=== PATIENT | female | born 1965 | race Caucasian/White ===

== ENCOUNTER → 2016-10-27 | Outpatient (CLI) | payer BC | END | disposition home or self-care (01) | LOC: C.PAPS 10:38 | PROVIDERS: ATTEND Obstetrics & Gynecology | DX: Z01.419 Encounter for gynecological examination (general) (routine) without abnormal findings (principal) ==

== ENCOUNTER → 2016-12-10 | Outpatient (CLI) | payer BC ==
--- NOTE | 2016-12-13 13:03 | MAMMOGRAPHY REPORT ---
BILATERAL DIGITAL SCREENING MAMMOGRAM TOMOSYNTHESIS WITH CAD: 12/10/2016 TECHNIQUE: Breast tomosynthesis in addition to standard 2D mammography was performed. Current study was also evaluated with a Computer Aided Detection (CAD) system. COMPARISON: Comparison is made to exams dated: 04/04/2015 mammogram, 06/24/2014 ultrasound, 06/24/2014 mammogram, 08/27/2013 ultrasound, 08/27/2013 mammogram, and 08/21/2013 mammogram - [facility]. BREAST COMPOSITION: The tissue of both breasts is heterogeneously dense, which may obscure small ma sses. FINDINGS: No suspicious masses, calcifications, or areas of architectural distortion are noted in e ither breast. There has been no significant interval change compared to prior exams. Bilateral asym metries and bilateral benign-appearing calcifications are not significantly changed. IMPRESSION: ACR BI-RADS CATEGORY 2: BENIGN There is no mammographic evidence of malignancy. A 1 year screening mammogram is recommended. The p atient will receive written notification of the results. Approximately 10% of breast cancers are not detected with mammography. A negative mammographic repor t should not delay biopsy if a clinically suggestive mass is present. Lisset Frank M.D. ah/:12/10/2016 16:42:10 Senior Packaging Engineer: Halle MOISE(R)(M), [facility] letter sent: Normal 1/2 BI-RADS Code: ACR BI-RADS Category 2: Benign
== END | disposition home or self-care (01) ==
LOC: C.MAMM 13:21
PROVIDERS: ATTEND Obstetrics & Gynecology
DX: Z12.31 Encounter for screening mammogram for malignant neoplasm of breast (principal)

== ENCOUNTER → 2017-01-26 | Outpatient (CLI) | payer BC ==
[~2017-01-26] MED LIST: MethylPREDNISolone HOME PACK 16 MG TAB PO SCH
--- NOTE | 2017-01-26 15:24 | DIAGNOSTIC IMAGING REPORT ---
FLUOROSCOPICALLY GUIDED RIGHT HIP STEROID AND ANESTHETIC INJECTION CLINICAL HISTORY: Right hip pain. Degenerative arthritis. COMPARISON STUDY: None FLUOROSCOPY TIME: 26 seconds. A single fluoroscopic spot image was acquired. FINDINGS: A timeout was performed. The risks of the procedure were explained the patient and informed consent was obtained. The patient was prepped and draped in a sterile fashion. The skin was anesthetized 1% lidocaine. Under fluoroscopic guidance, a 22-gauge spinal needle was introduced into the joint capsule the right hip. Intra-articular location was documented with injection of Optiray 300. 2 cc of Celestone, and 5 cc of 0.5% Marcaine were then instilled into the joint capsule. There were no immediate complications. IMPRESSION: Successful intra-articular right hip injection. 5 cc of 0.5% Marcaine, and 2 cc of Celestone were instilled into the joint capsule. Electronically signed by: Nando Vasquez M.D. 01/26/2017 3:22 PM Dictated Date/Time: 01/26/2017 3:20 PM
== END | disposition home or self-care (01) ==
LOC: C.RADBC 13:53
PROVIDERS: ATTEND Orthopaedic Surgery
DX: M16.11 Unilateral primary osteoarthritis, right hip (principal)

== ENCOUNTER 2025-06-11 14:25 | Inpatient (IN) ==
--- NOTE | 2025-06-11 15:15 | Emergency Department Note ---
History of Present Illness General Chief complaint: Abdominal Pain Stated complaint: R ABD PAIN, REF BY DOC Time Seen by Provider: 06/11/25 14:45 History of Present Illness Maximum Pain Intensity: 4 Patient is a 59-year-old female with past medical history significant for endometriosis, diverticulosis, GERD, who presents to the emergency department for evaluation of right lower quadrant abdominal pain. She states she noticed the pain around 1600 yesterday. It is in the mid right/right lower abdomen. It does not radiate. She felt nauseous and uneasy like she might vomit or have diarrhea, but neither occurred. She states the pain was worse last night than it was today, she currently rates it a 4/10. She did have a normal bowel movement yesterday, no change in her pain. She reports bladder pressure and urinary frequency, but no dysuria or hematuria. She did not try taking any medications for her symptoms. Remote history of an ovarian cyst. She denies a history of kidney stones. History of cystoscopy but otherwise no abdominal surgeries. She is postmenopausal. Home Medications Medication Instructions Recorded Confirmed Type fluoxetine 40 mg capsule 40 mg PO QAM 03/29/19 01/28/20 History omeprazole 40 mg capsule,delayed 40 mg PO QAM 03/29/19 01/28/20 History release methylprednisolone 4 mg tablets in 4 mg PO DAILY #21 ea 06/13/25 Rx a dose pack (Medrol (Jaun)) Allergies Allergy/AdvReac Type Severity Reaction Status Date / Time amoxicillin Allergy Unknown Rash Unverified 06/11/25 19:44 moxifloxacin [From Avelox] Allergy Unknown Rash Unverified 06/11/25 19:44 Penicillins Allergy Unknown Rash Unverified 06/11/25 19:47 tuna oil Allergy Unknown CANNED Verified 01/28/20 10:49 TUNA-RASH diphenhydramine AdvReac Unknown aggravates Unverified 06/11/25 19:47 reaction from chicken pox Contrast Media Ready-Box MISC Allergy Unknown RASH,BLISTERS Uncoded 01/28/20 10:49 HANDS AND FEET WITH IVP DYES Past Med/Surg History Problem List (Updated 06/13/25 @ 08:30 by Desean Amos, ) Allergic dermatitis Urinary frequency Hydronephrosis Right lower quadrant abdominal pain (Acute) Microscopic hematuria Pelvic pain in female Laryngopharyngeal reflux Hypertrophy of nasal turbinates Endometriosis Encounter for gynecological examination with abnormal finding Dyspareunia, female Diverticulosis of large intestine without hemorrhage Chronic sinusitis Cervical radiculopathy Acquired deviated nasal septum Medical History (Updated 06/13/25 @ 08:30 by Desean Amos DO) Encounter for pre-operative examination GERD (gastroesophageal reflux disease) Temporomandibular joint disorder CLICKS LEFT SIDE Anxiety Asthma NO INHALERS Interstitial cystitis Urinary urgency Microscopic hematuria Endometriosis Dyspareunia, female Cervical radiculopathy Surgical History History of colonoscopy History of tooth extraction WISDOM TEETH S/P LASIK surgery of both eyes [place] teeth extracted Family History Grandmother (Maternal) Family history of diabetes mellitus Social History Smoking Status: Never smoker Second Hand Exposure: No; Do You Dip or Chew Tobacco: No; Hx Alcohol Use: Yes Alcohol type: wine Hx Substance Use: No Preferred Language: Czech Communication Ability: Effective Leveler Required: No Beliefs That Will Affect Care: None Current Living Situation: Spouse and Family current occupational status: employed Feels Safe at Home: Yes Assistive Devices: None Review of Systems A total of 10 systems reviewed and were otherwise negative Physical Exam Vital Signs Vital Signs - 24 hr 06/11/25 14:41 06/11/25 16:17 Temperature 36.4 C L Temperature Source Skin Pulse Rate 105 H Pulse Rate [Left Finger] 86 Pulse Rhythm [Left Finger] Regular Pulse Strength [Left Finger] Normal Respiratory Rate 18 21 Respiratory Effort / Characteristics Non-Labored Spontaneous Non-Labored Spontaneous Respiratory Depth Normal Normal Respiratory Pattern Regular Blood Pressure 142/88 H Blood Pressure [Left Arm] 137/87 Blood Pressure Mean 106 Blood Pressure Mean [Left Arm] 103 Blood Pressure Position Sitting Blood Pressure Position [Left Arm] Sitting Pulse Oximetry 97 97 Oxygen Delivery Method Room Air Room Air Sepsis Recent Fever Within 48 Hours No Sepsis New/Unexplained Change in Mental Status No Sepsis Action Taken by Nursing No Action Required CONSTITUTIONAL: Pleasant, mildly uncomfortable appearing 59-year-old female who is awake and alert and in no acute distress. EYES: Pupils equal, round, reactive to light and accommodation. EOMs intact without nystagmus. Sclera are anicteric. ENT: Tympanic membranes intact, with normal landmarks. External canals are clear. Oral and nasopharynx are clear. Mucous membranes are moist, no lesions, tongue and gums appear normal. CARDIOVASCULAR: Regular rate and rhythm. Peripheral pulses easy to palpable. RESPIRATORY: Breath sounds equal and clear to auscultation. GI: Bowel sounds are present. The abdomen is soft, nondistended, tender to percussion and palpation over the right lower quadrant, with voluntary guarding. MUSCULOSKELETAL: Full range of motion of extremities x 4 with good strength. No cyanosis, edema, joint tenderness or swelling. No deformity. INTEGUMENTARY: No lesions or rash, normal skin turgor. Course Course The patient was seen and assessed as above. External medical records are reviewed. She presents to the emergency department for evaluation of mid/right lower quadrant abdominal pain that started 24 hours ago. IV lock was initiated and laboratory studies were collected. She was offered but declined medication for discomfort. Laboratory studies, urinalysis and CT scan were obtained. Diagnostics, as interpreted by me: Laboratory studies: Normal white count at 6600, no left shift, no anemia, electrolyte imbalance, MARITZA or transaminitis. Lipase is normal. Urine microscopy is not overly concerning for infection. Small amount of RBCs noted but patient does have chronic microscopic hematuria. Imaging studies: CT scan of the abdomen and pelvis with IV contrast (with premedication including Pepcid and Solu-Medrol), the appendix is mildly prominent in caliber measuring up to 1 cm in diameter without significant periappendiceal inflammation. Mildly distended bladder with mild inflammatory changes and wall thickening. There is mild hydroureteronephrosis bilaterally, right worse than left, with mild inflammatory changes of the ureters. No obstructive calculus or obvious lesions of the kidneys. All laboratory and diagnostic imaging studies reviewed with Dr. Guerrier. 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 Reviewed laboratory studies and CT findings with her. While urine is not overtly concerning for infection, culture was ordered given CT scan findings. Given the right lower quadrant pain and CT scan findings concerning the appendix, I did review the patient with Dr. Amos with general surgery. He evaluated the patient in the emergency department and plan is for admission/observation for monitoring. Reviewed surgical plan with the patient and she was agreeable. She remained stable in the ED pending surgery evaluation. Chronic conditions affecting care: IC, GERD, diverticulosis, endometriosis Differential diagnosis: UTI, pyelonephritis, kidney stone, diverticulitis, infectious versus inflammatory colitis/enteritis, appendicitis, bowel obstruction, perforation, abscess, mass or malignancy, among others. Administered Medications Discontinued Medications Cetirizine HCl (Cetirizine Hcl 10 Mg Tablet) 10 mg PO NOW ONE Stop: 06/12/25 11:06 Last Admin: 06/12/25 11:29 Dose: 10 mg Documented By: NORMA Famotidine (Famotidine 20 Mg Tab) 20 mg PO QAM DYLAN Stop: 07/12/25 11:14 Last Admin: 06/13/25 08:59 Dose: 20 mg Documented By: Admin: 06/12/25 11:29 Dose: 20 mg Documented By: NORMA Famotidine (Pepcid 20mg Iv Push) 20 mg in 5 mls @ 2.5 mls/min IV NOW STA Stop: 06/11/25 15:11 Last Admin: 06/11/25 15:20 Dose: 2.5 mls/min Documented By: SAFIA Sodium Chloride (Nss) 1,000 mls @ 100 mls/hr IV .Q10H DYLAN Stop: 06/14/25 18:59 Last Admin: 06/12/25 17:35 Dose: Not Given Documented By: Infusion: 06/12/25 17:33 Dose: Infused Documented By: Admin: 06/12/25 08:15 Dose: 100 mls/hr Documented By: Infusion: 06/12/25 07:54 Dose: Infused Documented By: Admin: 06/11/25 21:54 Dose: 100 mls/hr Documented By: natalia Famotidine (Pepcid 20mg Iv Push) 20 mg in 5 mls @ 2.5 mls/min IV NOW STA Stop: 06/13/25 08:28 Last Admin: 06/13/25 08:59 Dose: 2.5 mls/min Documented By: LORI Methylprednisolone 60 mg/ (Syringe) 0.96 mls @ 1.5 mls/min IV NOW STA Stop: 06/13/25 08:31 Last Admin: 06/13/25 08:59 Dose: 1.5 mls/min Documented By: LORI Ioversol (Optiray 320 100ml) 90 ml IV ONCE ONE Stop: 06/11/25 16:07 Last Admin: 06/11/25 16:06 Dose: 90 ml Documented By: PERNELL Methylprednisolone (Methylprednisolone 125 Mg/2 Ml Vial) 125 mg IV NOW STA Stop: 06/11/25 15:11 Last Admin: 06/11/25 15:21 Dose: 125 mg Documented By: SAFIA Pantoprazole Sodium (Pantoprazole 40 Mg Tab) 40 mg PO QAM [facility] Stop: 07/12/25 08:59 Last Admin: 06/13/25 09:12 Dose: 40 mg Documented By: Admin: 06/12/25 08:15 Dose: 40 mg Documented By: NORMA Medical Decision Making Differential Diagnosis See ED Course. Medical Records Attestation: I reviewed the patient's medical records. Home Medications Current Medication List: was personally reviewed by me Laboratory Data Attestation: I reviewed the patient's lab results. 06/12/25 06:11 06/12/25 06:11 Lab Results 06/11/25 Range/Units 15:15 WBC 6.66 (4.8-10.8) K/ul RBC 4.46 (4.20-5.40) M/uL Hgb 12.9 (12.0-16.0) g/dL Hct 38.2 (37.0-47.0) % MCV 85.7 (80.0-100.0) fL MCH 28.9 (25.0-34.0) pg MCHC 33.8 (32.0-36.0) g/dL RDW Std Deviation 40.5 (36.4-46.3) fL RDW Coeff of Mckenzie 13.1 (11.5-14.5) % Plt Count 207 (130-400) K/uL MPV 10.2 (9.4-12.4) fL Immature Gran % (Auto) 0.3 % Neut % (Auto) 64.2 % Lymph % (Auto) 23.9 % Robeson % (Auto) 8.1 % Eos % (Auto) 3.2 % Baso % (Auto) 0.3 % Neut # (Auto) 4.28 (1.40-6.50) K/uL Lymph # (Auto) 1.59 (1.20-3.40) K/uL Robeson # (Auto) 0.54 (0.11-0.59) K/uL Eos # (Auto) 0.21 (0.00-0.50) K/uL Baso # (Auto) 0.02 (0.00-0.20) K/uL Immature Gran # (Auto) 0.02 (0.01-0.20) K/uL Sodium 139 (136-145) mmol/L Potassium 3.7 (3.5-5.1) mmol/L Chloride 104 (98-107) mmol/L Carbon Dioxide 27 (21-32) mmol/L Anion Gap 8 (3-11) BUN 12 (6-23) mg/dl Creatinine 0.65 (0.6-1.2) mg/dl Est Cr Clr Drug Dosing 90.3 ml/min eGFR 102.63 BUN/Creatinine Ratio 18.5 (10-20) Glucose 100 H (70-99(Fasting)) mg/dl Calcium 9.6 (8.6-10.3) mg/dl Total Bilirubin 0.7 (0.2-1.0) mg/dl AST 17 (13-39) U/L ALT 11 (7-52) U/L Alkaline Phosphatase 58 (34-104) U/L Total Protein 7.3 (6.0-8.3) gm/dl Albumin 4.5 (3.4-5.0) gm/dl Globulin 2.8 (2.5-4.0) gm/dl Albumin/Globulin Ratio 1.6 (0.9-2) Lipase 16 (11-82) U/L Urine Color Yellow Urine Appearance Clear (Clear) Urine pH 7.0 (4.5-7.5) Ur Specific [place] 1.009 (1.000-1.030) Urine Protein Negative (Negative) Urine Glucose (UA) Negative (Negative) Urine Ketones Negative (Negative) Urine Blood 1+ H (Negative) Urine Nitrite Negative (Negative) Urine Bilirubin Negative (Negative) Urine Urobilinogen Negative (Negative) Ur Leukocyte Esterase Trace H (Negative) Urine WBC (Auto) 0-5 (0-5) /hpf Urine RBC (Auto) 6-10 H (0-2) /hpf U Hyaline Cast (Auto) 0-2 (0-2) /lpf U Epithel Cells (Auto) 0-2 (0-2) /hpf Urine Bacteria (Auto) None Seen (None Seen) Urine Comment Imaging Data Attestation: I personally reviewed and interpreted this imaging study as follows: Radiologist's Impression: Abdomen/Pelvis CT 06/11/25 15:07 CT ABDOMEN and PELVIS with INTRAVENOUS CONTRAST HISTORY: Abdominal pain TECHNIQUE: CT abdomen and pelvis with contrast. IV CONTRAST: 100 mL of OMNIPAQUE 300 ENTERIC CONTRAST: Not Given COMPARISON: CT abdomen pelvis February 14, 2019. FINDINGS: LOWER CHEST: LIVER: Hepatic steatosis and hepatomegaly. Scattered hypodensities measuring up to 1.7 cm are probably cysts or hemangiomas. GALLBLADDER/BILIARY: Unremarkable gallbladder. No abnormal biliary dilatation. SPLEEN: Unremarkable. PANCREAS: Unremarkable. ADRENALS: Unremarkable. KIDNEYS: Mild hydroureteronephrosis bilaterally, right more than left. Mild inflammatory changes are suggested by the ureters. No obstructive calculus or obvious lesion is identified. PERITONEUM/RETROPERITONEUM. No lymphadenopathy by size criteria. No aortic aneurysm. GASTROINTESTINAL: No obstruction. Colonic diverticulosis without evidence of diverticulitis. The appendix is mildly prominent in caliber, measuring up to 1.0 cm in diameter. No significant periappendiceal inflammation is identified. REPRODUCTIVE: No suspicious pelvic mass is identified. URINARY BLADDER: Mildly distended with mild inflammatory changes and wall thickening. BONES: No acute findings. Hypodense lesions resulting in expansion of the right S2-3 neural foramina likely represent Tarlov cysts or neurogenic tumors. IMPRESSION: Mildly prominent caliber of the appendix measuring up to 1.0 cm in diameter. However no appreciable peritoneal inflammation is detected. Appendicitis is felt unlikely however please clinically correlate. Mild hydroureteronephrosis bilaterally, right more than left. No obstructive urolithiasis or obvious lesion is identified and this finding may be due to urinary reflux. Mild inflammatory changes are suggested by the ureters for which recommend correlation with urinalysis for possible UTI/ureteritis. Mildly distended urinary bladder with mild wall thickening could be due to cystitis Hypodense lesions resulting in expansion of the right S2-3 neural foramina likely represent Tarlov cysts or neurogenic tumors. Electronically signed by Sujit Santiago 06-11-2025 5:01 PM MDM Narrative See ED Course. Impression & Plan Right lower quadrant abdominal pain Discharge Plan Visit Data Chief Complaint: Abdominal Pain Stated Complaint: R ABD PAIN, REF BY DOC ED Provider: Zachariah Guerrier ED Midlevel Provider: Tre Dominguez Discharge Problem: Right lower quadrant abdominal pain Patient Disposition: Admitted As Inpatient Condition: Fair Discharge Instructions Interventions: ED Discharge Assessment Last Done: 06/11/25 21:00
[2025-06-11] MEDS: FAMOTIDINE 20MG IV PUSH 20 MG/5 ML SYR IV STA (15:20)
[2025-06-11 15:36] LABS: Hematocrit (blood only) 38.2 % (37.0-47.0); Hemoglobin 12.9 g/dL (12.0-16.0); Immature Granulocytes # (auto) 0.02 K/uL (0.01-0.20); Immature Granulocytes % (auto) 0.3 %; Mean Corpuscular Hemoglobin 28.9 pg (25.0-34.0); Mean Corpuscular Volume 85.7 fL (80.0-100.0); Platelet Count 207 K/uL (130-400); RDW Standard Deviation 40.5 fL (36.4-46.3); Red Blood Count 4.46 M/uL (4.20-5.40); White Blood Count 6.66 K/ul (4.8-10.8)
[2025-06-11 15:37] LABS: Appearance Urine Clear (Clear); Bacteria Urine Automated None Seen (None Seen); Cast Urine Automated 0-2 /lpf (0-2); Epithelial Cell Urine Auto 0-2 /hpf (0-2); Glucose Urine UA Negative (Negative); WBC Urine Automated 0-5 /hpf (0-5)
[2025-06-11 15:58] LABS: Alanine Aminotransferase 11.0 U/L (7-52); Albumin Globulin Ratio 1.6 (0.9-2); Albumin Level 4.5 gm/dl (3.4-5.0); Alkaline Phosphatase 58.0 U/L (34-104); Anion Gap 8.0 (3-11); Bilirubin,Total 0.7 mg/dl (0.2-1.0); Blood Urea Nitrogen 12.0 mg/dl (6-23); Calcium 9.6 mg/dl (8.6-10.3); Carbon Dioxide 27.0 mmol/L (21-32); Chloride 104.0 mmol/L (98-107); Creatinine Clr Calc Pharmacy 90.3 ml/min; Globulin 2.8 gm/dl (2.5-4.0); Glucose 100.0 mg/dl (70-99(Fasting)); Lipase 16.0 U/L (11-82); Potassium 3.7 mmol/L (3.5-5.1); Sodium 139.0 mmol/L (136-145); Total Protein 7.3 gm/dl (6.0-8.3)
[2025-06-11] MEDS: OPTIRAY 320 100ml IV ONE (16:06)
--- NOTE | 2025-06-11 17:01 | CT Scan Report ---
CT ABDOMEN and PELVIS with INTRAVENOUS CONTRAST HISTORY: Abdominal pain TECHNIQUE: CT abdomen and pelvis with contrast. IV CONTRAST: 100 mL of OMNIPAQUE 300 ENTERIC CONTRAST: Not Given COMPARISON: CT abdomen pelvis February 14, 2019. FINDINGS: LOWER CHEST: LIVER: Hepatic steatosis and hepatomegaly. Scattered hypodensities measuring up to 1.7 cm are probably cysts or hemangiomas. GALLBLADDER/BILIARY: Unremarkable gallbladder. No abnormal biliary dilatation. SPLEEN: Unremarkable. PANCREAS: Unremarkable. ADRENALS: Unremarkable. KIDNEYS: Mild hydroureteronephrosis bilaterally, right more than left. Mild inflammatory changes are suggested by the ureters. No obstructive calculus or obvious lesion is identified. PERITONEUM/RETROPERITONEUM. No lymphadenopathy by size criteria. No aortic aneurysm. GASTROINTESTINAL: No obstruction. Colonic diverticulosis without evidence of diverticulitis. The appendix is mildly prominent in caliber, measuring up to 1.0 cm in diameter. No significant periappendiceal inflammation is identified. REPRODUCTIVE: No suspicious pelvic mass is identified. URINARY BLADDER: Mildly distended with mild inflammatory changes and wall thickening. BONES: No acute findings. Hypodense lesions resulting in expansion of the right S2-3 neural foramina likely represent Tarlov cysts or neurogenic tumors. IMPRESSION: Mildly prominent caliber of the appendix measuring up to 1.0 cm in diameter. However no appreciable peritoneal inflammation is detected. Appendicitis is felt unlikely however please clinically correlate. Mild hydroureteronephrosis bilaterally, right more than left. No obstructive urolithiasis or obvious lesion is identified and this finding may be due to urinary reflux. Mild inflammatory changes are suggested by the ureters for which recommend correlation with urinalysis for possible UTI/ureteritis. Mildly distended urinary bladder with mild wall thickening could be due to cystitis Hypodense lesions resulting in expansion of the right S2-3 neural foramina likely represent Tarlov cysts or neurogenic tumors. Electronically signed by Sujit Santiago 06-11-2025 5:01 PM
--- NOTE | 2025-06-11 18:58 | History & Physical Report ---
Date of Service June 11, 2025 Assessment & Plan (1) Right lower quadrant abdominal pain: Plan: I evaluated the patient in room D6 in the emergency department. Due to the patient's clinical presentation she will be admitted to the surgical service for observation proceeding as follows: Patient does have a dilated appendix on CT scan without signs of periappendiceal inflammation suggestive of appendicitis. Given this fact I did discuss with the patient that we would like to observe her in the hospital to see if her symptoms progress or get better Analgesics will be provided Antiemetics will be provided I feel the acceptable for have clear liquids only but we will make her n.p.o. after midnight I do not have any discernible source of infection causing patient's pain we will withhold antibiotics at this time Will hydrate her with IV fluids Will repeat laboratories in the morning The patient will be reassessed the morning of 06/12/2025, sooner if needed and a determination will be made if patient will require any surgical or procedural intervention Will use SCDs for DVT prevention, no chemical means until is ascertained whether or not the patient requires any surgeries or procedures She will be a level 1 full code As above. Patient history exam and workup equivocal. She is having some urinary symptoms and in fact had urinary incontinence last night. I will request urology to weigh in tomorrow. I am not going to give antibiotics. Will reorder lab work including sed rate CRP and WBC tomorrow as well as reexamine her. If her condition worsens we may have to consider laparoscopy/appendectomy. History of Present Illness Chief Complaint: Abdominal pain Primary Care Provider: Jenn Coyne This 59-year-old female who presented to the emergency department secondary to abdominal pain. Patient notes that for approximately 24 hours she has been having abdominal pain that originated in the right lower quadrant. She says that the pain is now in the periumbilical area and throughout her abdomen in a generalized fashion. She has not had any nausea or vomiting. She has had occasional chills and did take her temperature at home and recorded a Tmax of approximate 99.1. She does not report any other modifying factors to her pain. Patient says that she also has urinary frequency without any dysuria or hematuria. I questioned her on whether or not she had prior abdominal surgeries and she states she had some type of bladder procedure but could not specify any further details. In addition, the patient reports that she does have a past medical history significant for endometriosis. Since arrival to the hospital she has had labs and imaging which independent reviewed. A CT scan of the abdomen pelvis showed an unremarkable gallbladder. The patient was noted to have a prominent appendix measuring approximately 1.0 cm however there is no peritoneal inflammation or signs of acute appendicitis. She was noted to have mild hydronephrosis bilaterally with no obstructive kidney stonesinterpreting radiologist felt this could be potentially due to urinary reflux. CBC revealed white blood cell count, hemoglobin, hematocrit, and platelet count were normal. Chemistry profile showed sodium and potassium as well as the BUN and creatinine were normal. There is no elevation of her LFTs. The urinalysis did show trace leukocyte esterase but was otherwise not indicative of infection. At the time of my interview she was resting comfortably bed and she was in no distress Allergies Allergy/AdvReac Type Severity Reaction Status Date / Time amoxicillin Allergy Unknown Rash Unverified 06/11/25 19:44 moxifloxacin [From Avelox] Allergy Unknown Rash Unverified 06/11/25 19:44 Penicillins Allergy Unknown Rash Unverified 06/11/25 19:47 tuna oil Allergy Unknown CANNED Verified 01/28/20 10:49 TUNA-RASH diphenhydramine AdvReac Unknown aggravates Unverified 06/11/25 19:47 reaction from chicken pox Contrast Media Ready-Box MISC Allergy Unknown RASH,BLISTERS Uncoded 01/28/20 10:49 HANDS AND FEET WITH IVP DYES Home Medications Medication Instructions Recorded Confirmed Type fluoxetine 40 mg capsule 40 mg PO QAM 03/29/19 01/28/20 History omeprazole 40 mg capsule,delayed 40 mg PO QAM 03/29/19 01/28/20 History release Past Med/Surg History Problem List Right lower quadrant abdominal pain (Acute) Microscopic hematuria Pelvic pain in female Laryngopharyngeal reflux Hypertrophy of nasal turbinates Endometriosis Encounter for gynecological examination with abnormal finding Dyspareunia, female Diverticulosis of large intestine without hemorrhage Chronic sinusitis Cervical radiculopathy Acquired deviated nasal septum Medical History Encounter for pre-operative examination GERD (gastroesophageal reflux disease) Temporomandibular joint disorder CLICKS LEFT SIDE Anxiety Asthma NO INHALERS Interstitial cystitis Urinary urgency Microscopic hematuria Endometriosis Dyspareunia, female Cervical radiculopathy Surgical History History of colonoscopy History of tooth extraction WISDOM TEETH S/P LASIK surgery of both eyes [place] teeth extracted Family History Grandmother (Maternal) Family history of diabetes mellitus Social History Smoking Status: Never smoker Second Hand Exposure: No; Do You Dip or Chew Tobacco: No; Hx Alcohol Use: Yes Alcohol type: wine and hard liquor Hx Substance Use: No Preferred Language: Libyan Communication Ability: Effective Criminal Research Specialist Required: No Beliefs That Will Affect Care: None Current Living Situation: Spouse and Family current occupational status: employed Feels Safe at Home: Yes Assistive Devices: Glasses Review of Systems Review of Systems: All systems reviewed & are unremarkable except as noted in HPI & below Physical Exam Constitutional: WD/WN, vitals as above Eyes: no conjunctival abnormality ENMT: Ears: no hearing impairment and no external ear abnormality Mouth: no oropharynx abnormality Neck: trachea midline Respiratory: normal respiratory effort; no respiratory distress and no labored breathing Cardiovascular: Rate/Rhythm: regular rate and regular rhythm Gastrointestinal (Abdomen): Patient's abdomen is soft and nondistended. There is no rigidity, rebound tenderness, guarding, or signs of peritonitis. Patient did have pain with palpation and generalized fashion in her abdomen but this appeared to be greatest in the right lower quadrant. Musculoskeletal: No calf tenderness Skin: no rashes Neurologic: moves all extremities Psychiatric: A+Ox3, euthymic affect Results & Data Results & Data Vital Signs (Past 12 Hours) Vital Signs Temp Pulse Pulse Resp BP BP Pulse Ox 06/11/25 16:17 86 21 137/87 97 06/11/25 14:41 36.4 C L 105 H 18 142/88 H 97 O2 Del Method 06/11/25 16:17 Room Air 06/11/25 14:41 Room Air PG Care Time/CCT Total # of Minutes Spent Total Time Spent with Patient: Total time spent is greater than 50% in coordination of care (as documented) at patient's floor/unit and/or counseling patient: Coding Level of Care Code 93162 INT INP/OBS CARE MIN Diagnoses Right lower quadrant abdominal pain R10.31
[2025-06-11] MEDS ORDERED: ONDANSETRON INJ 2 MG/ML 2 ML VIAL IV PRN (18:59)
[2025-06-11] MEDS ORDERED: ACETAMINOPHEN 1,000 MG/100 ML VIAL IV PRN (18:59)
[2025-06-11] MEDS ORDERED: MoRPHine SULFATE 4 MG/ML 1 ML CARP\\VIAL IV PRN (18:59)
[2025-06-11] MEDS: SODIUM CHLORIDE 0.9% 1,000 ML IV SCH (21:54)
[2025-06-12 06:33] LABS: Hematocrit (blood only) 36.8 % (37.0-47.0); Hemoglobin 12.4 g/dL (12.0-16.0); Immature Granulocytes # (auto) 0.02 K/uL (0.01-0.20); Immature Granulocytes % (auto) 0.4 %; Mean Corpuscular Hemoglobin 28.8 pg (25.0-34.0); Mean Corpuscular Volume 85.4 fL (80.0-100.0); Platelet Count 221 K/uL (130-400); RDW Standard Deviation 40.3 fL (36.4-46.3); Red Blood Count 4.31 M/uL (4.20-5.40); White Blood Count 4.95 K/ul (4.8-10.8)
[2025-06-12 06:52] LABS: Alanine Aminotransferase 10.0 U/L (7-52); Albumin Globulin Ratio 1.6 (0.9-2); Albumin Level 4.2 gm/dl (3.4-5.0); Alkaline Phosphatase 51.0 U/L (34-104); Anion Gap 7.0 (3-11); Bilirubin,Total 0.5 mg/dl (0.2-1.0); Blood Urea Nitrogen 13.0 mg/dl (6-23); Calcium 9.5 mg/dl (8.6-10.3); Carbon Dioxide 26.0 mmol/L (21-32); Chloride 108.0 mmol/L (98-107); Creatinine Clr Calc Pharmacy 104.5 ml/min; Globulin 2.6 gm/dl (2.5-4.0); Glucose 116.0 mg/dl (70-99(Fasting)); Lipase 8.0 U/L (11-82); Potassium 4.1 mmol/L (3.5-5.1); Sodium 141.0 mmol/L (136-145); Total Protein 6.8 gm/dl (6.0-8.3)
[2025-06-12 07:03] LABS: INR 1.1 (0.9-1.1); Partial Thromboplastin Time 25 Seconds (21-31); Prothrombin Time 11.1 Seconds (9.0-12.0)
--- NOTE | 2025-06-12 11:12 | Surgery Progress Note ---
Date of Service June 12, 2025 Assessment & Plan (1) Right lower quadrant abdominal pain: Plan: Pt here w/ RLQ pain; CT scan with findings of a dilated appendix without surrounding inflammation to suggest appendicitis. Some urological findings seen as well, mild hydroureteronephrosis R >L which could be related to urinary reflux as well as possible cystitis -Pt was admitted overnight for observation off of antibiotics, WBC this AM 4.9 and she has stable vital signs without fevers -Pt subjectively feels the same as when she came in, intermittent twinges of RLQ that come and go -She has some discomfort to palpation in the RLQ -Reviewed CT scan with our daytime radiology who agrees with the overnight read; appendix is dilated, no significant inflammatory findings, however the appendix was normal in the past -For now will continue with NPO and IVF and will discuss with surgeon plans to continue to monitor vs consideration of diagnostic laparoscopy with appendectomy -We have also consulted urology for their assistance with patient's urinary frequency complaints and correlate with findings on her CT scan; will likely get her reconnected with them as an outpatient as she has been a patient of theirs in the past Patient seen. Still having some abdominal discomfort but relatively mild. No leukocytosis no fever. Repeat CT scan was essentially negative. Will discharge home with close follow-up. Admission and Anticipated Discharge Date Admission Date: June 11, 2025 Subjective Patient reports not feeling much better than when she came in last night. Still with intermittent short twinges of pain that come and go in the RLQ. In between the twinges she has no pain. Her urinary frequency is improved. She denies fevers/chills, nausea/vomiting. Reports a non itchy rash on her R forearm and feels a little senior stock plan administrator neck/chest region, she says she does get a reaction after contrast media in the past for imaging. Physical Exam Physical Exam: awake/alert, no distress Respiratory: normal respiratory effort Gastrointestinal (Abdomen): Inspection/Auscultation: abdomen not distended Percussion/Palpation: + abdomen tender (some mild discomfort to deep palpation in the RLQ) and abdomen soft Results & Data Vital Signs (Past 12 Hours) Vital Signs Temp Pulse Resp BP Pulse Ox O2 Del Method 06/12/25 07:54 97.9 F 71 16 111/74 96 Room Air PG Care Time/CCT Total # of Minutes Spent Total Time Spent with Patient: Total time spent is greater than 50% in coordination of care (as documented) at patient's floor/unit and/or counseling patient: Coding Level of Care Code 02414 SUB INP/OBS CARE 08/18MIN Diagnoses Right lower quadrant abdominal pain R10.31
[2025-06-12] MEDS: CETIRIZINE HCL 10 MG TABLET PO ONE (11:29)
[2025-06-12] MEDS: FAMOTIDINE 20 MG TAB PO SCH (11:29)
--- NOTE | 2025-06-12 11:33 | Urology Consultation ---
Date of Consultation June 12, 2025 Assessment & Plan (1) Hydronephrosis: (2) Microscopic hematuria: (3) Urinary frequency: 59-year-old female presented for evaluation of right lower quadrant pain. CT showed a dilated appendix and she was admitted to the general surgery service for observation. Urology is consulted for urinary frequency and hydronephrosis Patient afebrile and hemodynamically stable She reports increase of urinary symptoms from her baseline approximately 2 days ago, but now improved Labs reviewedcreatinine 0.56, WBC 4.95, hemoglobin 12.4 Urinalysis showed 1+ blood, trace LE, 6-10 RBC/hpf Urine culture pendingfollow culture and treat if indicated CTAP showed mild bilateral hydronephrosis, R>L, no obstructing stones; bladder mildly distended Reviewed and discussed CTAP - mild hydronephrosis could be due to degree of bladder distention, reflux or other etiology Recommend monitor bladder emptying while inpatient Nursing can check a PVR and then bladder scan as needed No acute intervention at this time Will arrange outpatient follow-up with our service for additional workup regarding microscopic hematuria, urinary symptoms and hydronephrosis Continue care per general surgery service will sign off, please contact her service with any additional questions or concerns History of Present Illness Reason for Consultation: urinary frequency, hydronephrosis Attending Physician: Desean Amos, History of Present Illness This is a 59-year-old female who presents to the emergency department on 06/11/2020 for evaluation of right lower quadrant abdominal pain. She was admitted by the general surgery service for observation due to dilated appendix on CT scan. Urology is consulted for urinary frequency, hydronephrosis. CT abdomen pelvis with IV contrast showed mild hydroureteronephrosis bilaterally with right greater than left. No obstructing stones visualized. Mild inf lammatory changes by the ureters. Bladder is mildly distended with mild bladder wall thickening. Labs today reviewedcreatinine 0.56, WBC 4.95, hemoglobin 12.4 Urinalysis notable for 1+ blood, trace LE, 6-10 RBC/hpf Urine culture pending She previously followed with urology for urinary frequency, urgency, incomplete emptying, and hx of microscopic hematuria. Prior hematuria workup in January 2019. Previously has tried anticholinergics and Myrbetriq. She underwent cystoscopy with hydrodistention under anesthesia, urethral dilation in June 2019. Bladder was noted to be small in capacity. Patient reports urinary frequency and urgency with occasional incontinence at baseline. She reports increase of urinary frequency 2 days ago. She continues to have right lower quadrant discomfort intermittently. No flank pain at present. She notes some mid back pain on occasion when her bladder is full. No dysuria or hematuria. She is voiding spontaneously. She generally feels like she is emptying her bladder okay. No constipation. Allergies Allergy/AdvReac Type Severity Reaction Status Date / Time amoxicillin Allergy Unknown Rash Unverified 06/11/25 19:44 moxifloxacin [From Avelox] Allergy Unknown Rash Unverified 06/11/25 19:44 Penicillins Allergy Unknown Rash Unverified 06/11/25 19:47 tuna oil Allergy Unknown CANNED Verified 01/28/20 10:49 TUNA-RASH diphenhydramine AdvReac Unknown aggravates Unverified 06/11/25 19:47 reaction from chicken pox Contrast Media Ready-Box MISC Allergy Unknown RASH,BLISTERS Uncoded 01/28/20 10:49 HANDS AND FEET WITH IVP DYES Home Medications Medication Instructions Recorded Confirmed Type fluoxetine 40 mg capsule 40 mg PO QAM 03/29/19 01/28/20 History omeprazole 40 mg capsule,delayed 40 mg PO QAM 03/29/19 01/28/20 History release Patient History Medical History (Updated 06/12/25 @ 11:46 by PERCY Tirado) Encounter for pre-operative examination GERD (gastroesophageal reflux disease) Temporomandibular joint disorder CLICKS LEFT SIDE Anxiety Asthma NO INHALERS Interstitial cystitis Urinary urgency Microscopic hematuria Endometriosis Dyspareunia, female Cervical radiculopathy Surgical History History of colonoscopy History of tooth extraction WISDOM TEETH S/P LASIK surgery of both eyes [place] teeth extracted Family History Grandmother (Maternal) Family history of diabetes mellitus Social History Smoking Status: Never smoker Second Hand Exposure: No; Do You Dip or Chew Tobacco: No; Hx Alcohol Use: Yes Alcohol type: wine Hx Substance Use: No Preferred Language: Greek Communication Ability: Effective Turkey Farmer Required: No Beliefs That Will Affect Care: None Current Living Situation: Spouse and Family current occupational status: employed Feels Safe at Home: Yes Safety Concerns: Feels Safe At This Time Assistive Devices: Glasses Review of Systems Constitutional: as per Subjective / HPI Genitourinary: as per Subjective / HPI Physical Exam Constitutional: well developed and well nourished; no acute distress Respiratory: normal respiratory effort; no respiratory distress and no labored breathing Gastrointestinal (Abdomen): Inspection/Auscultation: abdomen normal to inspection Musculoskeletal: Head/Neck/Chest: normocephalic Neurologic: moves all extremities and awake Psychiatric: Orientation: alert and oriented x 3 Results & Data Vital Signs (Past 12 Hours) Vital Signs Temp Pulse Resp BP Pulse Ox O2 Del Method 06/12/25 07:54 36.6 C 71 16 111/74 96 Room Air PG Care Time/CCT Total # of Minutes Spent Total Time Spent with Patient: Total time spent is greater than 50% in coordination of care (as documented) at patient's floor/unit and/or counseling patient: Coding Level of Care Code 21640 IN/OBS CONSULT LVL 3,45M Diagnoses Hydronephrosis N13.30 Microscopic hematuria R31.29 Urinary frequency R35.0
--- NOTE | 2025-06-12 14:52 | CT Scan Report ---
CT SCAN OF THE ABDOMEN AND PELVIS WITHOUT IV CONTRAST CLINICAL HISTORY: Right lower quadrant abdominal pain. COMPARISON STUDY: Abdominal CT dated 06/11/2025. TECHNIQUE: CT scan of the abdomen and pelvis is performed from the lung bases to the proximal femora. Images are reviewed in the axial, sagittal, and coronal planes. IV contrast was not administered for this examination. A dose lowering technique was utilized adhering to the principles of ALARA. CT DOSE: 1024.61 mGy.cm FINDINGS: Lung bases: The heart is normal in size and without pericardial effusion. There is mild bibasilar ate lectasis. The lung bases are otherwise clear. Liver: The unenhanced liver is normal in size, contour, and attenuation. There is no intrahepatic chauncey iary ductal dilatation. Scattered hepatic cysts measure up to 2.2 cm. Gallbladder: Vicariously excreted contrast fills the gallbladder lumen. Spleen: Normal in size and attenuation. Pancreas: Unremarkable. Adrenal glands: Unremarkable. Kidneys: The unenhanced kidneys are normal in size and without hydronephrosis. Renal sinus cysts are noted on the left. No renal calculi are identified and no ureteral stone is seen. There is no evidenc e of contour deforming renal mass lesion. Abdominal vasculature: The abdominal aorta is normal in course and caliber. Bowel: There is mild colonic diverticulosis without CT evidence of acute diverticulitis. No bowel obs truction is seen. The appendix is mildly dilated, measuring up to 8 mm in diameter. This is related t o submucosal fat deposition. There is no surrounding inflammation or CT evidence of acute appendiciti s. Peritoneum: There is no intraperitoneal free air or abdominal ascites. Lymphadenopathy: None. Pelvic viscera: The bladder is normal as visualized, and is filled with excreted IV contrast. The [place] sameer and adnexa are normal as imaged. Skeletal structures: The skeletal structures are osteopenic. There is mild lumbosacral spondylosis. S acral Tarlov cysts are incidentally noted. No lytic or blastic lesions are seen. IMPRESSION: 1. No acute infectious or inflammatory findings are identified in the abdomen or pelvis. 2. There is no evidence of acute appendicitis. 3. Mild right-sided hydronephrosis seen yesterday has resolved. This may represent the sequelae of a recently passed kidney stone. Correlate with clinical findings and urinalysis. 4. Mild colonic diverticulosis without CT evidence of acute diverticulitis. 5. Additional findings as above. ACT 112: Negative or not required by law. Electronically signed by: Jd Morrison M.D. 06/12/2025 2:50 PM
[2025-06-13 07:13] VITALS: PULSE 77; RESP 16; TEMP 98.1; O2SAT 97
--- NOTE | 2025-06-13 08:31 | Surgery Progress Note ---
Date of Service June 13, 2025 Assessment & Plan (1) Right lower quadrant abdominal pain: Plan: Improved. Repeat CAT scan shows no indication of acute appendicitis or other acute abdominal pathology. She is tolerating breakfast. We will plan discharge this morning with close follow-up. Because of her rash I am going to give her an IV H2 lavelle as well as IV steroid and home with a Medrol Dosepak. She agrees with the plan. (2) Hydronephrosis: (3) Microscopic hematuria: (4) Allergic dermatitis: Admission and Anticipated Discharge Date Admission Date: June 11, 2025 Subjective Patient seen. Overall feeling well this morning other than a rash from the IV dye which she has had in the past. She has erythematous flat rash on her arms as well as inner thighs which is not pruritic but is mildly uncomfortable. She did have some upper abdominal discomfort last night after dinner but so far none this morning Physical Exam Constitutional: WD/WN, vitals as above no acute distress and not ill appearing Eyes: PERRL, conjunctivae normal, anicteric sclerae EOM intact bilaterally ENMT: external ear and nose normal, oropharynx normal Ears: no hearing impairment Neck: trachea midline, no thyromegaly Respiratory: normal respiratory effort; no respiratory distress and does not use accessory muscles Cardiovascular: Rate/Rhythm: regular rate and regular rhythm Gastrointestinal (Abdomen): Soft. Questionable mild distention. No right lower quadrant tenderness. Improved from admission. Skin: Erythematous rash on her inner thighs bilaterally as well as bilateral lower arms. Psychiatric: Orientation: alert, oriented x 3 and cooperative Results & Data Vital Signs (Past 12 Hours) Vital Signs Temp Pulse Resp BP Pulse Ox O2 Del Method 06/13/25 08:00 Room Air 06/13/25 07:12 36.7 C 77 16 124/77 97 Room Air 06/12/25 23:05 36.5 C 72 18 122/72 96 Room Air PG Care Time/CCT Total # of Minutes Spent Total Time Spent with Patient: Total time spent is greater than 50% in coordination of care (as documented) at patient's floor/unit and/or counseling patient: Coding Level of Care Code 85016 SUB INP/OBS CARE 08/18MIN Diagnoses Right lower quadrant abdominal pain R10.31 Hydronephrosis N13.30 Microscopic hematuria R31.29 Allergic dermatitis L23.9
[2025-06-13] MEDS: FAMOTIDINE 20MG IV PUSH 20 MG/5 ML SYR IV STA (08:59)
[2025-06-13 09:59] VITALS: BP 123/77
== END 2025-06-13 10:29 | disposition home or self-care (01) | DRG 392 ==
LOC: ED 14:25 → 3W 19:05
DX: K57.90 Diverticulosis of intestine, part unspecified, without perforation or abscess without bleeding; Y84.2 Radiological procedure and radiotherapy as the cause of abnormal reaction of the patient, or of later complication, without mention of misadventure at the time of the procedure; Y92.230 Patient room in hospital as the place of occurrence of the external cause; K21.9 Gastro-esophageal reflux disease without esophagitis; R10.31 Right lower quadrant pain; R94.4 Abnormal results of kidney function studies; Z88.0 Allergy status to penicillin; L27.0 Generalized skin eruption due to drugs and medicaments taken internally; Z88.1 Allergy status to other antibiotic agents; N80.9 Endometriosis, unspecified; Z91.041 Radiographic dye allergy status; T50.8X5A Adverse effect of diagnostic agents, initial encounter; R31.29 Other microscopic hematuria; R35.0 Frequency of micturition; Z83.3 Family history of diabetes mellitus; N13.30 Unspecified hydronephrosis